=== PATIENT | male | born 1950 | race Caucasian/White ===

== ENCOUNTER 2019-08-19 09:07 | Emergency (ER) | payer MEDICARE ==
[2019-08-19 10:00] VITALS: BP 170/76
--- NOTE | 2019-08-19 10:07 | UC ---
Respiratory Complaint HPI - HPI Summary HPI Summary: 68-year-old male who has been ill since and has a productive cough of brownish green sputum. He is a nonsmoker - History of Current Complaint Chief Complaint: UCRespiratory Stated Complaint: COUGH,CONGESTION Time Seen by Provider: 08/19/19 09:52 Hx Obtained From: Patient Onset/Duration: Gradual Onset Timing: Intermittent Episodes Severity Initially: Mild Severity Currently: Moderate Pain Intensity: 0 Character: Cough: Productive Aggravating Factors: Exertion, Deep Breaths Alleviating Factors: Nothing Associated Signs And Symptoms: Positive: URI, Nasal Congestion - Allergies/Home Medications Allergies/Adverse Reactions: Allergies Allergy/AdvReac Type Severity Reaction Status Date / Time No Known Allergies Allergy Verified 08/19/19 09:50 Home Medications: Home Medications Acetaminophen/Dextromethorphan [Cold & Cough Daytime 1000-30 mg/30Ml] 1 liq PO Q4H PRN 08/19/19 [History Confirmed 08/19/19] Aspirin [Aspir-Low] 81 mg PO DAILY 08/19/19 [History Confirmed 08/19/19] Atorvastatin* [Lipitor*] 40 mg PO DAILY 08/19/19 [History Confirmed 08/19/19] Dulaglutide [Trulicity] 1.5 mg SQ WEEKLY 08/19/19 [History Confirmed 08/19/19] Guaifenesin/Dextromethorphan [Coricidin Hbp Chest Jignesh-Cough] 2 each PO ONCE PRN 08/19/19 [History Confirmed 08/19/19] Insulin Glargine,Hum.rec.anlog [Lantus Solostar 5x3 ML PENS] 50 units SUBCUT BEDTIME 08/19/19 [History Confirmed 08/19/19] Pramipexole TAB* [Mirapex TAB*] 0.5 mg PO BEDTIME 08/19/19 [History Confirmed ] Ramipril CAP* [Altace CAP*] 5 mg PO DAILY 08/19/19 [History Confirmed 08/19/19] metFORMIN* [Glucophage 1000 MG TAB *] 1,000 mg PO BID 08/19/19 [History Confirmed 08/19/19] PMH/Surg Hx/FS Hx/Imm Hx Previously Healthy: Yes Endocrine History: Diabetes Cardiovascular History: Hypertension Cancer History: Other - Skin cancer - Surgical History Surgical History: Yes Surgery Procedure, Year, and Place: back 11/2018 -L4 L5 - Social History Alcohol Use: Occasionally Substance Use Type: None Smoking Status (MU): Never Smoked Tobacco Review of Systems All Other Systems Reviewed And Are Negative: Yes Eyes: Positive: Drainage - Patient states he's been having some purulent eye drainage today. ENT: Positive: Nasal Discharge Respiratory: Positive: Cough - Moist productive cough of brownish green sputum Is Patient Immunocompromised?: No Physical Exam Triage Information Reviewed: Yes Appearance: Well-Appearing, No Pain Distress, Well-Nourished Vital Signs: Initial Vital Signs Temp 99.9 F 08/19/19 09:54 Pulse 113 08/19/19 09:54 Resp 17 08/19/19 09:54 BP 170/76 08/19/19 09:54 Pulse Ox 96 08/19/19 09:54 Vital Signs Reviewed: Yes Eyes: Positive: Conjunctiva Inflamed - Right conjunctiva and sclera injected with yellow purulent discharge., Discharge ENT: Positive: Pharynx normal, Nasal congestion, Nasal drainage, TMs normal, Uvula midline Neck: Positive: Supple, Nontender, No Lymphadenopathy Respiratory: Positive: No respiratory distress, No accessory muscle use, Rhonchi - Scattered rhonchi throughout all lung gordon, moist productive cough. Cardiovascular: Positive: No Murmur, Pulses Normal, Brisk Capillary Refill, Tachycardia Musculoskeletal Exam: Normal Neurological Exam: Normal Psychological Exam: Normal Skin Exam: Normal Respiratory Course/Dx - Course Course Of Treatment: Chest x-ray:FINDINGS: The heart and mediastinum are normal in size and contour. There is infiltrate at the medial right lower lobe slightly obscuring the right heart border. Elsewhere the lungs are adequately aerated. Visualized bones are normal for the patient's age. There is no radiographic evidence of free air beneath the diaphragm IMPRESSION: POSSIBLE INFILTRATE/PNEUMONIA AT THE MEDIAL RIGHT LOWER LUNG. Patient is comfortable here and in no distress. - Differential Dx/Diagnosis Provider Diagnosis: RLL pneumonia Discharge ED - Sign-Out/Discharge Documenting (check all that apply): Patient Departure All imaging exams completed and their final reports reviewed: Yes - Discharge Plan Condition: Fair Disposition: HOME Prescriptions: DOXYcycline CAP(*) [DOXYcycline 100MG CAP(*)] 100 mg PO BID 10 Days #20 cap Tobramycin 0.3% OPHTH.LALO* 1 drop RIGHT EYE Q4H 7 Days #1 btl Patient Education Materials: Pneumonia (ED), Conjunctivitis (ED) Referrals: Fawad Chowdary MD [Primary Care Provider] - Additional Instructions: Good handwashing. Your eye infection is contagious for 24 hours one to start the antibiotic drops. Increase fluids. Call your primary care provider tomorrow and make an appointment to be rechecked after the antibiotic is finished. If you develop any shortness of breath, difficulty breathing or worsening symptoms your to go to the emergency room. No antacids, multivitamins , dairy products 2 hours before you take the doxycycline and 2 hours after you take it however take it with food. - Billing Disposition and Condition Condition: FAIR Disposition: Home
== END 2019-08-19 10:52 | disposition home or self-care (01) ==
LOC: UCCORT 09:07
DX: J18.1 Lobar pneumonia, unspecified organism (principal); E11.9 Type 2 diabetes mellitus without complications; Z79.82 Long term (current) use of aspirin; Z79.4 Long term (current) use of insulin; Z79.899 Other long term (current) drug therapy; Z85.828 Personal history of other malignant neoplasm of skin
CPT/HCPCS: 71046; 99202; G0463